=== PATIENT | male | born 1980 | race Caucasian/White ===

== ENCOUNTER → 2019-06-02 | Outpatient (CLI) | payer OTHER ==
--- NOTE | 2019-06-03 07:22 | REP ---
RIGHT HIP COMPLETE: 06/02/2019. Clinical history: Right hip pain after fall 2 days ago. Findings: No prior studies. Two-view show the hip joint space preserved. There is small rim osteophyte at the acetabular roof and femoral head. The latter is seen only on the frog-leg view. No hip joint space narrowing, AVN or fracture. Small subchondral cystic change in the femoral neck suggests synovial herniation pit, a benign finding. Right SI joint, iliac bone and visualized ischium and symphysis pubis were unremarkable. Femoral head and neck, trochanters and shaft seen were also intact. Impression: 1. Minimal degenerative changes of the hip, no fracture, joint space narrowing, erosion or other acute finding. Electronically Signed by Tyler Walker MD 06/03/2019 07:44 A
--- NOTE | 2019-06-03 07:29 | REP ---
LUMBAR SPINE COMPLETE: 06/02/2019. Comparison: 12/05/2013. Clinical history: Low back pain. Patient fell 05/31. Findings: Five views are provided. Lateral view shows loss of lordosis which may reflect some spasm. It is similar to the 2013 study and the MRI of 01/31/2019. There is disc space narrowing at L4-5 and L5-S1. A few millimeters of retrolisthesis of L4 on L5 due to facet arthropathy seen but unchanged. No compression deformity or destructive lesion. No spondylolysis. AP view shows pedicles, spinous and transverse processes intact. Sacral ala and foramina intact. Hip joint space is symmetric. Impression: 1. Some degenerative disc changes with slight disc space narrowing at L4-5 and L5-S1 and a few millimeters of retrolisthesis of L4 on L5. This may be due to some mild facet arthropathy. There is no spondylolysis, spondylolisthesis, compression fracture or other acute bony finding. 2. Loss of lordosis may reflect some spasm but appearance unchanged since 2013. Electronically Signed by Tyler Walker MD 06/03/2019 07:45 A
== END ==
LOC: M LRY 15:26
PROVIDERS: ATTEND Nurse Practitioner Family
DX: M48.061 Spinal stenosis, lumbar region without neurogenic claudication (principal); M48.07 Spinal stenosis, lumbosacral region; M51.36 Other intervertebral disc degeneration, lumbar region; M51.37 Other intervertebral disc degeneration, lumbosacral region; M25.551 Pain in right hip